=== PATIENT | male | born 2000 | race Caucasian/White ===

== ENCOUNTER → 2021-04-03 15:54 | Outpatient (CLI) | payer OTHER, SELFPAY ==
[2021-04-03 15:20] VITALS: BMI 34.8
[2021-04-03 17:04] LABS: Microalbumin,Random Urine 34.3 mg/L (NO RANGE EST.); Microalbumin:Creatinine Ratio 14.4 mg/g CRE (<30 mg/g CRE)
[2021-04-03 17:25] LABS: AST(SGOT) 20 U/L (15-37); Alanine Aminotransfer ALT/SGPT 39 U/L (16-61); Albumin, Serum 3.9 g/dL (3.2-5.0); Alkaline Phosphatase 135 U/L (45-117); Anion Gap 2 (5-15); BUN 16 mg/dL (7-18); BUN/Creat Ratio 18.8 RATIO (10-20); Calcium,Total 9.4 mg/dL (8.5-10.1); Chloride 104 mmol/L (98-107); Cholesterol 207 mg/dL (200); Creatinine, Serum 0.85 mg/dL (0.70-1.30); EST Glomerular Filtration Rate 121 mL/min (>60); Est Glom Filt Rate - Afr Amer 146 mL/min (>60); Glucose 112 mg/dL (74-106); High Density Lipoprotein 48 mg/dL; Potassium 4.2 mmol/L (3.5-5.1); Protein, Total 7.9 g/dL (6.4-8.2); Sodium Level 138 mmol/L (136-145); T4 Free Direct 0.99 ng/dL (0.76-1.46); Thyroid Stim Hormone (TSH) 1.44 uIU/mL (0.358-3.74); Triglycerides 139 mg/dL; Very Low Density Lipoprotein 28 mg/dL (5-40)
== END ==
PROVIDERS: Referring Provider Internal Medicine Endocrinology, Diabetes & Metabolism; Visit Provider Internal Medicine Endocrinology, Diabetes & Metabolism
DX: E10.65 Type 1 diabetes mellitus with hyperglycemia (principal)
CPT/HCPCS: 36415; 80053; 80061; 82043; 82570; 84439; 84443

== ENCOUNTER → 2023-11-01 | Outpatient (CLI) | payer OTHER, SELFPAY ==
[2023-11-01 17:29] LABS: Microalbumin,Random Urine 19.3 mg/L (NO RANGE EST.); Microalbumin:Creatinine Ratio 10.1 mg/g CRE (<30 mg/g CRE)
[2023-11-01 17:32] LABS: AST(SGOT) 27 U/L (15-37); Alanine Aminotransfer ALT/SGPT 39 U/L (16-61); Albumin, Serum 3.9 g/dL (3.2-5.0); Alkaline Phosphatase 135 U/L (45-117); Anion Gap 3 (5-15); BUN 16 mg/dL (7-18); BUN/Creat Ratio 14.7 RATIO (10-20); Calcium,Total 9.7 mg/dL (8.5-10.1); Chloride 107 mmol/L (98-107); Cholesterol 205 mg/dL (200); Creatinine, Serum 1.09 mg/dL (0.70-1.30); EST Glomerular Filtration Rate 88 mL/min (>60); Est Glom Filt Rate - Afr Amer 107 mL/min (>60); Glucose 86 mg/dL (74-106); High Density Lipoprotein 50 mg/dL; Potassium 4.4 mmol/L (3.5-5.1); Protein, Total 7.9 g/dL (6.4-8.2); Sodium Level 139 mmol/L (136-145); Thyroid Stim Hormone (TSH) 1.64 uIU/mL (0.358-3.74); Triglycerides 101 mg/dL; Very Low Density Lipoprotein 20 mg/dL (5-40)
--- OUTSIDE RECORDS SUMMARY | 2023-11-01 19:28 | XMS RPT_ITS | CCD ---
Author Name Unknown Address [address] [place] [address] [place] [id number] Organization [facility] Results Test Name Value Interpretation Reference Range Facil ity Progress note 08-26-2021 Note Date & Type Note Facility 08-26-2021 Note HNO ID: [id number] Author: Tatiana Damina MD Service: ? Author Type: Physician Type: Progress Notes Filed: 08/26/2021 9:43 AM Note Text: VIRTUAL VISIT This is a virtual visit using [employer] (HIPAA-compliant) It required patient-provider interaction for the medical decision making as documented below. REASON FOR CONSULTATION: Type 1 diabetes Transferring care HISTORY Mr Mi Pena is a 20 year old male who comes in here for evaluation of diabetes. Previous diabetes provider: Dr. Dexter tobar Approximate age at diagnosis of diabetes: 7 years old Circumstances surrounding the diagnosis: polyuria, polydipsia, was told by PCP to go to ED Complications/comorbidities: History of diabetes medications: Started vial and syringe Humalog Novolog Current diabetes medications: Fiasp in the pump, says it is the best Medtronic 670G manual mode, since 2018 Freestyle Shannan 2 Steroid intake including injections: Change in meals and exercise: Weight [employer] INSULIN PUMP SETTINGS Basal rate: 00:00 = 2.55 jumps high, says this is his pattern 9 am = 1.15 11 am = 1.80 5:30pm = 1.40 46.05= 24 hour basal rate Insulin:carb ratio 1:6 Sensitivity 1:20 Blood glucose target 70-140 Insulin duration= 3 hours CGM Freestyle Shannan 2 Download reveals CGM of past days: Unable to give readings now, will send to me in 1-2 weeks PMHx/PSHx: depression Soc Hx: Computer, student Karl Fam Hx: maternal GM - type 2 DM REVIEW OF SYSTEMS No n/v No blurring of vision PHYSICAL EXAMINATION by video GENERAL: not in distress, well-appearing HEENT: anicteric sclerae, non-injected conjunctivae NECK: able to move easily, no obvious goiter NEUROLOGIC: alert, oriented LABS REVIEWED: none available, says A1c 7.1% IMAGING REVIEWED: PAST MEDICAL HISTORY Diagnosis Date - Insulin pump titration - Obesity (BMI 30.0-34.9) - Presence of insulin pump - Type 1 diabetes mellitus with hyperglycemia, with long-term current use of insulin (HCC) PAST SURGICAL HISTORY Procedure Laterality Date - NONE Social History Tobacco Use - Smoking status: Never Smoker - Smokeless tobacco: Never Used Substance Use Topics - Alcohol use: No - Drug use: Not on file FAMILY HISTORY Problem Relation Age of Onset - Diabetes Maternal Grandmother - Heart Maternal Grandmother - Heart Father - Heart Maternal Grandfather - Heart Paternal Grandmother - Heart Paternal Grandfather Current Outpatient Medications Medication Sig - citalopram (CELEXA) 40 mg tablet Take 1 tablet by mouth once daily. - sertraline (ZOLOFT) 25 mg tablet Take 1 tablet by mouth once daily. - HUMALOG U-100 INSULIN 100 unit/mL injection INJECT 125 UNITS SUBCUTANEOUSLY ONE TIME DAILY VIA INSULIN PUMP - Insulin Syringe-Needle U-100 (BD INSULIN SYRINGE ULTRAFINE) 0.3 mL 31 gauge x 5/16 syrg As needed for pump back up - blood sugar diagnostic (ONETOUCH ULTRA TEST) test strip Check blood sugar 6 times per day No current facility-administered medications for this visit. ALLERGIES No Known Allergies ASSESSMENT/PLAN Type 1 diabetes Continue with weight watchers 5' 266 lb BMI 37 Will give clinic number for him to send [facility] readings Will send to me in 1-2 weeks Made known of insurance charge Has back up One Touch Test strips Continue CGM Hesitant to make pump setting changes right now as he has just gotten back to school from holidays Discussed metformin, patient deferring for now Hypoglycemia prevention, recognition and treatment reviewed. Driving and checking BG discussed Glucagon - prescribed Medic-alert bracelet - discussed Diabetes health maintenance record reviewed Blood pressure - at visit Lipids - will obtain Albumin/crea ratio - will obtain Meals and exercise- weight watchers Dilated eye exam - he will have report sent Foot - at visit (E10.65) Type 1 diabetes mellitus with hyperglycemia, with long-term current use of insulin ([facility]) (primary encounter diagnosis) Comment: Plan: BASIC METABOLIC PNL, ALT/SGPT, AST/SGOT BLD, ALBUMIN/CREAT RATIO RND UR, TSH BLD, LIPID PANEL BASIC, HGB A1C, insulin aspart, niacinamide, (FIASP U-100 INSULIN) 100 unit/mL soln, glucagon 3 mg/actuation nasal spray (BAQSIMI), flash glucose sensor (FREESTYLE SHANNAN 2 SENSOR) kit, CONSULT TO [facility] Contact us if has not heard about lab results after a week or two of completion. Follow-up: 2 mo pharmD, 4-6 mo me, gave appointment phone number Contact us sooner than recommended follow-up if with issues/concerns. Follow-up with primary care provider and other specialists for issues not explained by the condition that the patient is seeing me for. M Gwen Damian MD, MPH August 26, 2021 9:42 AM [facility] Clinical Note 10-21-2020 Note Date & Type Note Facility 10-21-2020 Note Patient Outreach ([facility]) MI PENA ([id number]) 89 M Date Time Provider Department 10/21/20 SUNIL SALINAS During your visit today, we recorded the following information about you: Allergies As of Date: 10/21/2020 (No Known Allergies) Date Reviewed: 01/06/2019 Reviewed by: Gertrudis Montana - Fully Assessed Order(s):SARS-COVID VACCINE 1ST DOSE APPT [[id number]] Order #: [id number] FUTURE Prescriptions as of 10/21/2020 Sig: CITALOPRAM 40 MG TABLET Take 1 tablet by mouth once d* SERTRALINE 25 MG TABLET Take 1 tablet by mouth once d* HUMALOG U-100 INSULIN 100 UNI* INJECT 125 UNITS SUBCUTANEOUS* INSULIN SYRINGE U-100 WITH NE* As needed for pump back up BLOOD SUGAR DIAGNOSTIC STRIPS Check blood sugar 6 times pe* Problem List As Of Date 10/21/2020 Noted Resolved Type 1 diabetes mellitus with hyperglycemia, wi* Insulin pump titration [Z46.81] Presence of insulin pump [Z96.41] Severe obesity with body mass index (BMI) of 35* Encounter Status:Closed by GILDA PRODUSER on 10/24/20 [facility] Summary Purpose Family History No Family History Records FoundNo Family History Records FoundNo Family History Records Found Advance Directives No Advanced Directives Records FoundNo Advanced Directives Records FoundNo Advanced Directives Records Found Additional Source Comments (unrecognized sect ion and content) No Status Records FoundNo Status Records FoundNo Status Records Found INFORMATION SOURCE (unrecogn ized section and content) DATE CREATED AUTHOR AUTHOR'S ORGANIZ ATION 03/06/2020 [facility] DATE CREATED AUTHOR AUTHOR'S ORGANIZ ATION 09/16/2021 [facility] FOR RECORDS PERTAINING TO PATIENTS WHO ARE OR HAVE BEEN ENROLLED IN A CHEMICAL DEPENDENCY/SUBSTANCEABUSE PROGRAM, SOME INFORMATION MAY BE OMITTED. This clinical summary was aggregated from multiple sources. Caution should be exercised in using it in the provision of clinical care. This summary normalizes information from multiple sources, and as a consequence, information in this document may materially change the coding, format and clinical context of patient data. In addition, data may be omitted in some cases. CLINICAL DECISIONS SHOULD BE BASED ON THE PRIMARY CLINICAL RECORDS. [facility] [employer] [facility]. provides no warranty or guarantee of the accuracy or completeness of information in this document.
== END | disposition home or self-care (01) ==
LOC: BIMLAB 15:51
PROVIDERS: Visit Provider Internal Medicine Endocrinology, Diabetes & Metabolism
DX: E10.65 Type 1 diabetes mellitus with hyperglycemia (principal)
CPT/HCPCS: 36415; 80053; 80061; 82043; 82570; 84443